=== PATIENT | male | born 1975 | race Hispanic/Latino ===

== ENCOUNTER 2019-05-23 06:04 | Emergency (ER) | payer OTHER | END 2019-05-23 06:26 | LOC: EDH 06:04 | DX: Z02.83 Encounter for blood-alcohol and blood-drug test (principal) | CPT/HCPCS: 36415 ==

== ENCOUNTER 2023-01-16 06:20 | Day surgery (SDC) | payer OTHER ==
[2023-01-14 12:15] LABS: BASOPHILS # (AUTO) 0.04 K/uL (0.00-0.20); BASOPHILS % (AUTO) 0.5 % (0.0-5.0); EOSINOPHILS # (AUTO) 0.21 K/uL (0.00-0.70); EOSINOPHILS % (AUTO) 2.5 % (0.0-8.0); HEMATOCRIT 45.1 % (42-54); IMMATURE GRANULOCYTE ABSOLUTE 0.03 K/uL (0-1); LYMPHOCYTES # (AUTO) 2.5 K/uL (1.0-4.8); LYMPHOCYTES % (AUTO) 29.8 % (21.0-51.0); MEAN CORPUSCULAR HEMOGLOBIN 31.9 pg (27.0-33.0); MEAN CORPUSCULAR VOLUME 91.1 fL (79-99); MONOCYTES # (AUTO) 0.7 K/uL (0.1-1.0); NEUTROPHILS % (AUTO) 58.8 % (40.0-77.0); PLATELET COUNT (AUTO) 226 K/uL (130-400); RED BLOOD CELL COUNT(AUTO) 4.95 MIL/uL (4.50-6.20); RED CELL DISTRIBUTION WIDTH 13.4 % (11.0-15.5); WHITE BLOOD COUNT (AUTO) 8.5 K/uL (4.8-10.8)
[2023-01-14 12:26] LABS: INR 0.96 (0.85-1.15); PROTHROMBIN TIME 11.2 SEC (9.6-11.6)
[2023-01-14 12:27] LABS: PARTIAL THROMBOPLASTIN TIME 29.6 SEC (26.3-35.5)
[2023-01-14 12:29] VITALS: BP 142/77; PULSE 77; RESP 18
[2023-01-14 12:43] LABS: CREATININE 1.1 mg/dL (0.5-1.5); POTASSIUM 3.9 mmol/L (3.5-5.1)
[~2023-01-16] VITALS: Ht 170.2 cm; Wt 131.1 kg
[2023-01-16] VITALS (8 sets, daily range): BP systolic 139–161; BP diastolic 82–97; PULSE 62–89; RESP 16–22
[~2023-01-16 06:20] MED LIST: ALBU18HF7 IH; FLUT1BLS10 IH
[2023-01-16] MEDS ORDERED: ISOVUE-300 100 ML VIAL IV ONE (06:21)
[2023-01-16] MEDS ORDERED: 0.9%NACL 1000ML 1,000 ML IV ONE (07:32)
[2023-01-16] MEDS ORDERED: BENZ-39 PO (08:56)
[2023-01-16] MEDS ORDERED: LIDOCAINE HCL 400MG/20ML VIAL ONE (10:02)
[2023-01-16] MEDS ORDERED: HEPARIN 10,000 UNIT/10ML (1,000 UNIT/ML) VIAL ONE (10:02)
[2023-01-16] MEDS ORDERED: MIDAZOLAM HCL 1 MG/ML 2ML VIAL ONE (10:02)
[2023-01-16] MEDS ORDERED: NICARDIPINE 25MG INJ IV ONE (10:02)
[2023-01-16] MEDS ORDERED: FENTANYL CITRATE PF 50 MCG/1 ML 2ML VIAL ONE (10:02)
[2023-01-16] MEDS ORDERED: NITROGLYCERIN 50MG VIAL ONE (10:02)
[2023-01-16] MEDS ORDERED: DEXTROSE 50%-WATER 50 ML DISP.SYRIN IV PRN (12:00)
[2023-01-16] MEDS ORDERED: GLUCAGON 1MG KIT 1 MG ML IM PRN (12:00)
== END 2023-01-16 15:00 | disposition home or self-care (01) ==
LOC: DAH 06:20
PROVIDERS: ATTEND Internal Medicine Cardiovascular Disease
DX: R06.09 Other forms of dyspnea (principal); J84.112 Idiopathic pulmonary fibrosis; I25.10 Atherosclerotic heart disease of native coronary artery without angina pectoris; I27.20 Pulmonary hypertension, unspecified; G47.33 Obstructive sleep apnea (adult) (pediatric); E66.9 Obesity, unspecified; Z86.16 Personal history of COVID-19; Z83.3 Family history of diabetes mellitus; Z68.41 Body mass index [BMI] 40.0-44.9, adult; Z79.01 Long term (current) use of anticoagulants; Z79.899 Other long term (current) drug therapy; Z98.890 Other specified postprocedural states
CPT/HCPCS: 80048; 85025; 85610; 85730; 36415; 71045; 93005; 93460; C1894 ×2; C1769; Q9967; J3010; J3490 ×3; J7030; J1644 ×2; J2250; A4215; A4222; A4221; A4663; A4216; A4606; A4223 ×3; 99156; 99157; A4649

== ENCOUNTER 2023-04-09 07:55 | Day surgery (SDC) | payer OTHER ==
[2023-04-02 10:50] VITALS: BP 167/88; PULSE 65; RESP 18
[~2023-04-09] VITALS: Ht 170.2 cm; Wt 129.3 kg
[~2023-04-09 07:55] MED LIST changes: +BENZ-39 PO; +BUPIVACAINE/PF 0.5% 30ML VIAL ONE
[2023-04-09 08:19] VITALS: BP 120/76; PULSE 86; RESP 17
[2023-04-09] MEDS ORDERED: KETAMINE HCL 100 MG/ML 5ML VIAL IJ ONE (10:32)
[2023-04-09] MEDS ORDERED: GLYCOPYRROLATE 1 MG/5 ML SYRINGE ONE (10:39)
[2023-04-09 10:55] VITALS: BP 130/78; PULSE 80; RESP 16
[2023-04-09 11:00] VITALS: BP 134/77; PULSE 78; RESP 15
[2023-04-09 11:05] VITALS: BP 128/74; PULSE 81; RESP 16
[2023-04-09 11:10] VITALS: BP 135/80; PULSE 77; RESP 16
== END 2023-04-09 11:30 | disposition home or self-care (01) ==
LOC: DAH 07:55 → ENDO 07:55
PROVIDERS: ATTEND Internal Medicine Gastroenterology
DX: K52.9 Noninfective gastroenteritis and colitis, unspecified (principal); K57.30 Diverticulosis of large intestine without perforation or abscess without bleeding; J84.10 Pulmonary fibrosis, unspecified; M19.90 Unspecified osteoarthritis, unspecified site; G47.30 Sleep apnea, unspecified; Z80.0 Family history of malignant neoplasm of digestive organs; Z79.51 Long term (current) use of inhaled steroids; Z87.891 Personal history of nicotine dependence
CPT/HCPCS: 45380; J0665; J3490 ×2; A4620; A4215 ×2; A4223; A7002; A4222; A4221; A4663; A4216; J7030; A4606